=== PATIENT | female | born 1970 | race Caucasian/White ===

== ENCOUNTER 2020-12-12 13:19 | Emergency (ER) | payer OTHER, SELFPAY ==
[2020-12-12 13:23] VITALS: BP 140/81; PULSE 76; RESP 20; TEMP 36.7; O2SAT 99
[2020-12-12 13:39] VITALS: BP 140/81; PULSE 76; RESP 20; TEMP 36.7; O2SAT 99
--- NOTE | 2020-12-12 13:43 | ED.SKABFB ---
HPI - Skin/Abscess/Foreign Bdy General Chief complaint: Skin/Abscess/Foreign Body Stated complaint: Bites on both Arms Source: patient and RN notes reviewed Limitations: no limitations History of Present Illness HPI narrative: The unvaccinated patient, a recent ex-smoker/ nondrinker presents with skin eruption. Patient comments her medical history is remarkable for recent instrumentation and cardiac stent placement a couple weeks ago. She now has over 1/2-week history of pink, itchy, raised mostly flat skin eruption on exposed areas like her forearms and ankles . These appear to be insect bites, but she is not had a chance for that to occur. These have started to spread; no fever, palm/oral/eye involvement, streaking, discharge. She reports a penicillin allergy only; discussed possible causes [allergic, environmental, med ] and will treat broadly Related Data Home Medications Medication Instructions Recorded Confirmed aspirin [Adult Low Dose Aspirin] 81 mg PO DAILY 12/12/20 12/12/20 atorvastatin 40 mg PO DAILY 12/12/20 12/12/20 clopidogrel 75 mg PO DAILY 12/12/20 12/12/20 famotidine 20 mg PO HS 12/12/20 12/12/20 losartan 50 mg PO DAILY 12/12/20 12/12/20 Allergies Allergy/AdvReac Type Severity Reaction Status Date / Time Penicillins Allergy Intermediate Hives Verified 12/12/20 13:34 Review of Systems Review of Systems: General/Constitutional: No weight loss,fever Eyes: N0: Redness,discharge Ears/Nose/Throat: No: Epistaxis,ear discharge Respiratory: Denies: Hemoptysis Gastrointestinal: No Vomiting, Bleeding-rectal Skin: No Lumps, REPORTS eruption Neurologic: No Focal Weakness,Sz Hematologic: Denies: Petechiae/Purpura Psychiatric: No: Suicida ideationl All Other Systems: Reviewed and Negative PMFSH Comments At time of signature, agree with nursing past medical, surgical, social and family history. There is no relevant family history pertinent to the presenting complaint Exam Narrative: General Appearance: Well nourished, Normocephalic Eye: PERRLA, Conjunctiva clear Ear: External ear normal Nose: Normal nose, Nare clear Mouth/Throat: Normal appearing, Supple Respiratory: Airway patent, No respiratory distress Musculoskeletal: Moves all extremities, Non tender Spine/Back: Normal ROM Skin: Warm, Dry, smaller, 1 cm ovoid, blanching maculopapular eruption of exposed areas of extremities Neurological: A&O x3 Psychiatric: Normal mood, Normal affect Course Vital Signs Vital signs: Vital Signs Temperature 98.0 F 12/12/20 13:23 Pulse Rate 76 12/12/20 13:23 Respiratory Rate 12/12/20 13:23 Blood Pressure 140/81 12/12/20 13:23 Pulse Oximetry 99 12/12/20 13:23 Temperature 98.0 F 12/12/20 13:39 Pulse Rate 76 12/12/20 13:39 Respiratory Rate 12/12/20 13:39 Blood Pressure 140/81 12/12/20 13:39 Pulse Oximetry 99 12/12/20 13:39 Discharge Plan Discharge Clinical Impression: Acute eruption of skin, Pruritic condition Patient Disposition: Home, Self-Care Condition: Stable Additional Instructions: Keep photo log of area Prescriptions: New loratadine [Claritin] 10 mg tablet 10 mg PO DAILY Qty: 20 RF: 1 prednisone 20 mg tablet 60 mg PO DAILY Qty: 9 RF: 0 cefdinir 300 mg capsule 300 mg PO Q12H Qty: 10 RF: 0 No Action atorvastatin 40 mg tablet 40 mg PO DAILY RF: 0 losartan 50 mg tablet 50 mg PO DAILY RF: 0 clopidogrel 75 mg tablet 75 mg PO DAILY RF: 0 aspirin [Adult Low Dose Aspirin] 81 mg Tablet,Delayed Release (Dr/Ec) 81 mg PO DAILY RF: 0 famotidine 20 mg Tablet 20 mg PO HS RF: 0 Follow-up/Referrals: PHYSICIAN,[employer]ACHINE OPERATOR [Primary Care Provider] -
== END 2020-12-12 14:05 | disposition home or self-care (01) ==
PROVIDERS: Emergency Provider Emergency Medicine
DX: R21 Rash and other nonspecific skin eruption (principal); L29.9 Pruritus, unspecified; Z79.82 Long term (current) use of aspirin; I10 Essential (primary) hypertension; E78.00 Pure hypercholesterolemia, unspecified; I25.2 Old myocardial infarction; Z95.5 Presence of coronary angioplasty implant and graft
CPT/HCPCS: 99213; G0463

== ENCOUNTER 2021-02-27 12:42 | Emergency (ER) | payer OTHER, SELFPAY ==
[2021-02-27 12:51] VITALS: BP 122/74; PULSE 78; RESP 16; TEMP 36.8; O2SAT 99
[2021-02-27 13:05] VITALS: BP 122/74; PULSE 78; RESP 16; TEMP 36.8; O2SAT 99
--- NOTE | 2021-02-27 13:14 | ED.SKABFB ---
HPI - Skin/Abscess/Foreign Bdy General Chief complaint: Skin/Abscess/Foreign Body Stated complaint: Bump on L breast Time Seen by Provider: 02/27/21 13:14 Source: patient History of Present Illness HPI narrative: patient presents with hard, tender area to left breast. has had mammogram in the past few years and was diagnosed with clogged milk gland. no streaking and no drainage. Related Data Home Medications Medication Instructions Recorded Confirmed aspirin [Adult Low Dose Aspirin] 81 mg PO DAILY 12/12/20 02/27/21 atorvastatin 40 mg PO DAILY 12/12/20 02/27/21 clopidogrel 75 mg PO DAILY 12/12/20 02/27/21 losartan 50 mg PO DAILY 12/12/20 02/27/21 Allergies Allergy/AdvReac Type Severity Reaction Status Date / Time Penicillins Allergy Intermediate Hives Verified 12/12/20 13:34 Review of Systems Review of Systems: CONSTITUTIONAL: Denies fever, chills, or sweats. EYES: Denies visual changes, redness, or discharge. ENT: Denies rhinorrhea, congestion, sore throat, or otalgia. CARDIOVASCULAR: Denies chest pain, palpitations, or edema. RESPIRATORY: Denies cough or dyspnea. GASTROINTESTINAL: Denies abdominal pain, nausea, vomiting, or diarrhea. GENITOURINARY: Denies dysuria or hematuria. SKIN: Denies rash or itching. tenderness to left breast MUSCULOSKELETAL: Denies back pain, joint pain, or myalgia. NEUROLOGIC: Denies headache, numbness, or weakness. PSYCHIATRIC: Denies anxiety or depression. Allergic/Immunologic: Comments: At time of signature, agree with nursing past medical, surgical, social and family history. There is no relevant family history pertinent to the presenting complaint Exam Narrative: GENERAL: Well-appearing, well-nourished, and in no acute distress. HEAD: Normocephalic, atraumatic. EYES: PERRLA and EOMI. ENT: Nares clear, no rhinorrhea or epistaxis. Mucous membranes moist. NECK: Supple. CHEST: Clear to auscultation. No respiratory distress. HEART: Regular rate and rhythm. No murmur heard. Normal peripheral pulses. ABDOMEN: Soft, nontender, nondistended, normal active bowel sounds. EXTREMITIES: Normal range of motion. No edema. SKIN: Warm, dry, no rash. NEURO: No focal deficits. Alert and oriented x3. [place] Coma Scale Eye Opening: Spontaneous 4 [place] Coma Scale Motor: Obeys Commands 6 [place] Coma Scale Verbal: Oriented 5 [place] Coma Scale Total 15 Chest: Chest/axillae images: 1. 2cn circular hard, tender area. No induration and no fluctuance Course Vital Signs Vital signs: Vital Signs Temperature 36.8 C 02/27/21 12:51 Pulse Rate 78 02/27/21 12:51 Respiratory Rate 16 02/27/21 12:51 Blood Pressure 122/74 02/27/21 12:51 Pulse Oximetry 99 02/27/21 12:51 Temperature 36.8 C 02/27/21 13:05 Pulse Rate 78 02/27/21 13:05 Respiratory Rate 16 02/27/21 13:05 Blood Pressure 122/74 02/27/21 13:05 Pulse Oximetry 99 02/27/21 13:05 MDM - Skin/Abscess/Foreign Bdy Differential Diagnosis Differential diagnosis: Likely abscess of skin or subcutaneous tissue, viral exanthem, dermatophytosis, urticaria, herpes zoster, allergic reaction to drug, eczema, insect bites and contact dermatitis Critical Care Time Critical Care Time Critical Care Time: No Discharge Plan Discharge Clinical Impression: Abscess of skin or subcutaneous tissue Patient Disposition: Home, Self-Care Condition: Stable Instructions: Antibiotic Form, Breast Self Exam for Women (ED), Abscess (ED) Additional Instructions: warm compresses to area follow up with primary care provider for further evaluation and treatment and possible ultrasound and or mammogram if any new or worsening of symptoms go to er immediately Prescriptions: No Action atorvastatin 40 mg tablet 40 mg PO DAILY RF: 0 losartan 50 mg tablet 50 mg PO DAILY RF: 0 clopidogrel 75 mg tablet 75 mg PO DAILY RF: 0 aspirin [Adult Low Dose Aspirin] 81 mg Tablet,Delayed Release (Dr/Ec) 81 mg PO DA
== END 2021-02-27 13:29 | disposition home or self-care (01) ==
PROVIDERS: Emergency Provider Nurse Practitioner Family
DX: N61.1 Abscess of the breast and nipple (principal); Z79.82 Long term (current) use of aspirin; Z95.5 Presence of coronary angioplasty implant and graft; E78.00 Pure hypercholesterolemia, unspecified; I10 Essential (primary) hypertension; I25.2 Old myocardial infarction
CPT/HCPCS: 99211; G0463

== ENCOUNTER 2024-01-05 08:12 | Emergency (ER) | payer OTHER, SELFPAY ==
[2024-01-05 08:18] VITALS: BP 176/80; PULSE 80; RESP 16; TEMP 36.8; O2SAT 99
[2024-01-05 08:22] VITALS: BP 176/80; PULSE 80; RESP 16; TEMP 36.8; O2SAT 99
--- NOTE | 2024-01-05 08:28 | ED.GENADULT ---
HPI - General Adult General Chief complaint: Upper Respiratory Infection Stated complaint: head and body aches Time Seen by Provider: 01/05/24 08:28 Source: patient, RN notes reviewed and old records reviewed Mode of arrival: ambulatory Limitations: no limitations History of Present Illness HPI narrative: 53-year-old female to [facility] for complaint of nasal congestion, runny nose, body aches, left ear pain for 1 day. Patient denies fever, vomiting, diarrhea, abdominal pain, sore throat,, urinary changes, shortness of breath, difficulty swallowing, headache, dizziness, visual changes , pertinent medical history. Patient hypertensive in triage. Patient able to tolerate fluids by mouth. Respirations even and nonlabored. Patient resting in exam room in no acute distress. Related Data Home Medications Medication Instructions Recorded Confirmed aspirin 81 mg tablet,delayed 81 mg PO DAILY 12/12/20 02/27/21 release (Adult Low Dose Aspirin) atorvastatin 40 mg tablet 40 mg PO DAILY 12/12/20 02/27/21 clopidogrel 75 mg tablet 75 mg PO DAILY 12/12/20 02/27/21 losartan 50 mg tablet 50 mg PO DAILY 12/12/20 02/27/21 metoprolol succinate 25 mg mg PO 01/05/24 tablet,extended release 24 hr warfarin 1 mg tablet mg 01/05/24 Allergies Allergy/AdvReac Type Severity Reaction Status Date / Time Penicillins Allergy Intermediate Hives Verified 12/12/20 13:34 Review of Systems Review of Systems: All systems reviewed & are unremarkable except as noted in HPI and below Constitutional: Constitutional: Reports no additional constitutional complaints Eyes: Eyes: Reports no additional eye complaints ENT: Reports system reviewed and no additional complaints, except as documented Cardiovascular: Cardiovascular: Reports no additional cardiovascular complaints, Denies chest pain and Denies dyspnea Respiratory: Respiratory: Reports no additional respiratory complaints, Denies cough and Denies dyspnea Musculoskeletal: Musculoskeletal: Reports no additional musculoskeletal complaints Neurologic: Reports system reviewed and no additional complaints, except as documented Psychiatric: Psychiatric: Reports no additional psychiatric complaints PMFSH Comments At the time of my signature, I reviewed and agree with the nursing past medical, surgical, social, and family history. There is no relevant family history pertinent to the patient complaint. Exam Const: General: cooperative, healthy appearing, comfortable, no acute distress, alert and well nourished Nutritional Appearance: well nourished Orientation/consciousness: patient oriented x3 Limitations: no limitations HENMT: Head: normal to inspection Ears: external ears normal Face/Nose/Sinus: Normal external nose present, Normal nares present, normal facial exam, No erythema and No edema Face and sinus: normal facial exam, no erythema and no edema Mouth: Yes Normal oral and palatal mucosa present Eyes: General: appearance normal, both eyes and all related structures Neck: Neck: normal visual inspection, full ROM and no meningeal signs Lymphatic: no lymphadenopathy noted and no lymphedema noted Chest: Chest palpation & inspection: normal inspection of the chest Resp: Effort & Inspection: normal respiratory effort and able to speak in complete sentences Auscultation: clear to auscultation bilaterally Cardio: Jugular venous distension: no JVD Rate: regular rate Rhythm: regular rhythm Back/Spine/Pelvis: Cervical Spine: cervical ROM normal Skin: General skin exam: normal color, no rashes or lesions noted and turgor normal Neuro: General: patient oriented x3, gait normal, moves all extremities and no meningeal signs Speech: normal speech Gait exam (Neuro): Normal gait present Extrem: General: normal to inspection, full ROM and capillary refill normal Psych: Appearance: grossly normal and well kempt Course Course Emergency Course: Some parts of this dictation were genera
== END 2024-01-05 08:48 | disposition home or self-care (01) ==
PROVIDERS: Emergency Provider Nurse Practitioner Family
DX: H66.92 Otitis media, unspecified, left ear (principal); Z79.82 Long term (current) use of aspirin; Z79.01 Long term (current) use of anticoagulants; I10 Essential (primary) hypertension; E78.00 Pure hypercholesterolemia, unspecified; I25.2 Old myocardial infarction; Z95.5 Presence of coronary angioplasty implant and graft
CPT/HCPCS: 99213; G0463